=== PATIENT | female | born 1990 | race Caucasian/White ===

== ENCOUNTER 2023-12-02 18:53 | Emergency (ER) | payer OTHER, SELFPAY ==
[2023-12-02 19:00] VITALS: BP 131/74; PULSE 90; RESP 18; TEMP 36.8; O2SAT 99
--- NOTE | 2023-12-02 19:19 | ED.URI ---
HPI - URI/Sore Throat General Chief Complaint: Upper Respiratory Infection Stated Complaint: throat/flu symptoms/back pain Time Seen by Provider: 12/02/23 19:19 History of Present Illness HPI Narrative: 33 y/o female presented for c/o sore throat, subjective fever and chills, body aches, Onset yesterday. Also reports concern for uti, reports left flank pain and diarrhea x2 days. Rates pain 8/10, pain is intermittent, sharp and stabbing. Feels better when leaning forward. Not taking anything for symptoms. Denies sick contacts. Related Data Home Medications Medication Instructions Recorded Confirmed No Home Medications 12/02/23 12/02/23 Allergies Allergy/AdvReac Type Severity Reaction Status Date / Time Penicillins Allergy Unknown Verified 12/02/23 19:23 Review of Systems Review of Systems: CONSTITUTIONAL: Denies body aches, fever, chills, or sweats. EYES: Denies visual changes, redness, or discharge. ENT: reports sore throat Denies rhinorrhea, congestion, or otalgia. CARDIOVASCULAR: Denies chest pain, palpitations, or edema. RESPIRATORY: Denies dyspnea. GASTROINTESTINAL: Denies abdominal pain, vomiting reports nausea diarrhea. SKIN: Denies rash, itching, or wounds. MUSCULOSKELETAL: Denies back pain, joint pain, or myalgia. NEUROLOGIC: Denies headache [facility] Surgical History Surgical History (Updated 12/02/23 @ 19:27 by Margot Noland, [facility]) Hx of cholecystectomy Exam Narrative: GENERAL: well-appearing, no acute distress. EYES: conjunctivae clear ENT: Mucous membranes moist. TMs pearly rodriguez with normal light reflex bilaterally; no tragal tenderness. Oropharynx erythematous without lesions. Tonsils not enlarged and without exudate. No drooling, no hoarseness, no trismus, uvula midline. No tripod positioning, hot potato voice, or soft palate swelling. NECK: Supple. No lymphadenopathy CHEST: Clear to auscultation, breath sounds equal. No respiratory distress, speaks in full sentences. HEART: Regular rate and rhythm. No murmur heard. ABD: soft, flat, mild tender to LLQ, mild Left flank tenderness SKIN: Warm, dry, no rash. NEURO: Alert and oriented x3. Course Course Emergency Course: Patient is aware of diagnosis, understands and agrees to treatment plan. Anticipatory guidance given. Patient agrees to follow-up as directed and is aware of reasons to seek care at the emergency department. Portions of this record may have been created with voice recognition software Level of Care: Express Care Visit Vital Signs Vital signs: Vital Signs Temperature 98.2 F 12/02/23 19:00 Pulse Rate 90 12/02/23 19:00 Respiratory Rate 18 12/02/23 19:00 Blood Pressure 131/74 12/02/23 19:00 Pulse Oximetry 99 12/02/23 19:00 Oxygen Delivery Room Air 12/02/23 19:00 Temperature 98.2 F 12/02/23 19:00 Pulse Rate 90 12/02/23 19:00 Respiratory Rate 18 12/02/23 19:00 Blood Pressure 131/74 12/02/23 19:00 Pulse Oximetry 99 12/02/23 19:00 Oxygen Delivery Room Air 12/02/23 19:00 MDM - URI/Sore Throat MDM Narrative Medical decision making narrative: Neg strep result reviewed with pt. Urine dip reviewed. Pt with left flank pain intermittently, mild CVA tenderness with palpation. Discussed possiblity of renal stone, suggested ER, pt will monitor and go if symptoms worsen. Plans to f/u with pcp. Advise supportive treatments. Patient is appropriate for outpatient treatment and follow-up. Differential Diagnosis Differential diagnosis: Likely upper respiratory infection, viral infection, pharyngitis and other (uti, renal stone, pyelonephritis) Discharge Plan Discharge Clinical Impression: Acute flank pain, Pharyngitis Patient Disposition: Home, Self-Care Condition: Stable Instructions: Antibiotic Form, Kidney Stones (ED), Urinary Tract Infection in Women (ED) Additional Instructions: Rapid strep swab was negative today You will be notified in a few days
== END 2023-12-02 19:45 | disposition home or self-care (01) ==
PROVIDERS: Emergency Provider Nurse Practitioner Family
DX: R10.9 Unspecified abdominal pain (principal); J02.9 Acute pharyngitis, unspecified
CPT/HCPCS: 81003; 87081; 87086; 87088; 87880; 99213; G0463

== ENCOUNTER 2024-07-14 11:38 | Emergency (ER) | payer OTHER, SELFPAY ==
[2024-07-14 11:44] VITALS: BP 122/78; PULSE 82; RESP 20; TEMP 36.8; O2SAT 100
--- NOTE | 2024-07-14 11:54 | ED_ITS ---
HPI - URI/Sore Throat General Chief Complaint: Upper Respiratory Infection Stated Complaint: upper respiratory Time Seen by Provider: 07/14/24 11:50 Source: patient, RN notes reviewed and old records reviewed Mode of arrival: ambulatory Limitations: no limitations History of Present Illness HPI Narrative: 34 year old female who presents to [facility] care with complaints of 1.5 weeks of sinus congestion and drainage, scratchy throat and initially dry cough. Patient reports that it feels like drainage has now started to go to her chest with cough now loose with expectoration of green mucous. Patient reports that she has not had any fevers. Patient states that she has been taking Mucinex Max multi symptoms liquid with no improvement in her symptoms. MD elicited complaint: cough, sore throat, rhinorrhea and nasal congestion Severity: moderate Treatments prior to arrival: other (Mucinex max) Related Data Allergies Allergy/AdvReac Type Severity Reaction Status Date / Time Penicillins Allergy Unknown Verified 07/14/24 11:45 Review of Systems Review of Systems: CONSTITUTIONAL: Denies malaise, chills, sweats, or fever. EYES: Denies visual changes, redness, or discharge. ENT: Reports rhinorrhea, congestion, sinus pain, no otalgia and scratchy sore throat. CARDIOVASCULAR: Denies chest pain, palpitations, or edema. RESPIRATORY: Reports productive cough.? Denies dyspnea. GASTROINTESTINAL: Denies abdominal pain, nausea, vomiting, diarrhea SKIN: Denies rash or itching. MUSCULOSKELETAL: Denies myalgia. NEUROLOGIC: Denies headache. All systems reviewed & are unremarkable except as noted in HPI and below PMFSH Surgical History Surgical History Hx of cholecystectomy Social History Social History Smoking packs per day: 1 Smoking cigarettes per day: 20.0 Years smoked: 12 Smoking pack-years: 12.00 Smoking status: Current every day smoker Tobacco type: e-cigarettes/vaping Additional smoking assessment comments: former cigarette use quit 4 years now vapes Alcohol intake: current Alcohol use details: social Substance use type: does not use Living arrangements: with family Gender identity (if verbalized by the patient): Female Comments At time of signature, agree with nursing past medical, surgical, social and family history. There is no relevant family history pertinent to the presenting complaint Exam Narrative: GENERAL: Well-appearing, well-nourished, and in no acute distress. HEAD: Normocephalic EYES: PERRLA, conjunctivae clear ENT: Nares clear, turbinates edematous and erythematous, clear discharge. sinus pressure,. Mucous membranes moist. TM pearly rodriguez with dull light reflex bilaterally; no tragal tenderness. Oropharynx erythematous without lesions. Tonsils not enlarged and without exudate, no drooling, no hoarseness, no trismus, uvula midline.post nasal drainage NECK: Supple. No lymphadenopathy CHEST: Clear to auscultation, breath sounds equal. No wheezing, rhonchi, rales, or stridor. No respiratory distress, speaks in full sentences.productive cough,SAO2 100% on room air HEART: Regular rate and rhythm. No murmur heard. SKIN: Warm, dry, no rash. NEURO: Alert and oriented x3. PSYCH: Normal mood and affect Course Course Emergency Course: Patient is aware of diagnosis, understands and agrees to treatment plan.? Anticipatory guidance given.? Patient agrees to follow-up as directed and is aware of reasons to seek care at the emergency department. Portions of this record may have been created with voice recognition software Level of Care: Express Care Visit Vital Signs Vital signs: Vital Signs Temperature 36.8 C 07/14/24 11:44 Pulse Rate 82 07/14/24 11:44 Respiratory Rate 20 07/14/24 11:44 Blood Pressure 122/78 07/14/24 11:44 Pulse Oximetry 100 07/14/24 11:44 Oxygen Delivery Room Air 07/14/24 11:44 Temperature 36.8 C 07/14/24 11:44 Pulse Rate 82 07/14/24 11:44 Respiratory Rate 20 07/14/24 11:44 Blood Pressure 122/78 07/14/24 11:44 Pulse Oximetry 100 07/14/24 11:44 Oxygen Delivery Room Air 07/14/24 11:44 Reviewed MDM - URI/Sore Throat MDM Narrative Medical decision making narrative: Differential diagnosis considered: Ochoa virus, strep pharyngitis, allergic rhinitis, upper respiratory tract infection, sinusitis, rhinosinusitis, nasopharyngitis. viral pharyngitis, otitis media, otitis externa, pneumonia, bronchitis, viral cough syndrome, viral syndrome, and influenza.? Exam findings show no acute concerns or changes; patient is non-toxic appearing and is in no distress.? Patient is appropriate for outpatient treatment and follow-up. Differential Diagnosis Differential diagnosis: Likely upper respiratory infection, sinusitis, viral infection, pharyngitis and other (acute cough) Medical Records Attestation: I reviewed the patient's medical records. Lab Data Attestation: I reviewed the patient's lab results. Critical Care Time Critical Care Time Critical Care Time: No Discharge Plan Discharge Clinical Impression: Sinusitis Qualifiers: Sinusitis location: pansinusitis Chronicity: acute Recurrence: non-recurrent Qualified Code(s): J01.40 - Acute pansinusitis, unspecified Cough Qualifiers: Cough type: acute Qualified Code(s): R05.1 - Acute cough Patient Disposition: Home, Self-Care Condition: Stable Instructions: Antibiotic Form Additional Instructions: Increase fluids especially juices and water [id number] cough and cold medicine of your choice for your symptoms Zyrtec,Claritin or Linsey daily Tylenol or Ibuprofen for any fever or pain heat to the face 20-30 minutes 4-6 times a day for pain Salt water gargles, throat lozenges or throat sprays as desired Antibiotic as directed--finished the medication If your symptoms persist, change or worsen significantly before you can contact your personal physician then please, without delay, go to the emergency department for further evaluation. Follow-up with PCP in 7-10 days or sooner if needed Prescriptions: New cefdinir 300 mg capsule 300 mg PO Q12H Qty: 20 0RF Follow-up/Referrals: Librado,Truman Villarreal MD [Primary Care Provider] - Time of Disposition: 12:10 Quality Vicky Coma Scale Eyes: Open Verbal: Oriented and Alert Motor: Follows Commands [place] Total Score: 15
== END 2024-07-14 12:10 | disposition home or self-care (01) ==
PROVIDERS: Emergency Provider Registered Nurse; PCP Family Medicine
DX: J01.40 Acute pansinusitis, unspecified (principal); R05.1 Acute cough; F17.290 Nicotine dependence, other tobacco product, uncomplicated
CPT/HCPCS: 99213; G0463